=== PATIENT | male | born 2000 | race Caucasian/White ===

== ENCOUNTER 2023-12-14 10:10 | Emergency (ER) | payer OTHER ==
--- NOTE | 2023-12-14 10:52 | XRAY Report ---
PROCEDURE: Knee 4+V LT INDICATIONS: Trauma TECHNIQUE: 4 views of the knee(s) were acquired. COMPARISON: None. FINDINGS: Bones: No displaced fracture is identified. No dislocation. Soft tissues: Possible small suprapatellar effusion. IMPRESSION: No acute osseous abnormality on radiography. If there is high concern for further derangement, consid er MRI evaluation. Possible small effusion. Reviewed by: Gianni Gan MD on 12/14/2023 10:50 AM [facility] Approved by: Gianni Gan MD on 12/14/2023 10:50 AM PST Station ID: [id number]
[2023-12-14 11:09] VITALS: BP 142/85; O2SAT 98
--- NOTE | 2023-12-14 11:32 | ED Physician Documentation ---
PD HPI LOWER EXT INJURY - Stated complaint Stated Complaint: LT KNEE INJ,RT HAND LAC - Chief complaint Chief Complaint: Ext Problem - History obtained from History obtained from: Patient - Additional information Additional information: Patient is a 23-year-old male with no significant past medical history presenting for evaluation of left knee pain. 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 Reports having difficulty with ambulation due to feeling like his knee is going to buckle again and reports pain to the site. He has had on and off issues with this knee. Denies head injury. Does not take any medications regularly. Review of Systems Musculoskeletal: reports: Joint pain Neurologic: denies: Head injury PD PAST MEDICAL HISTORY - Past Medical History Past Medical History: No - Past Surgical History Past Surgical History: No - Present Medications Home Medications: Ambulatory Orders Medication Instructions Recorded Confirmed No Known Home Medications 12/14/23 12/14/23 - Allergies Allergies/Adverse Reactions: Allergies Allergy/AdvReac Type Severity Reaction Status Date / Time No Known Drug Allergies Allergy Verified 12/14/23 10:25 - Social History Does the pt smoke?: No Smoking Status: Never smoker PD ED PE NORMAL - General General: Alert and oriented X 3, No acute distress, Well developed/nourished - HEENT HEENT: Atraumatic, Moist mucous membranes - Respiratory Respiratory: No respiratory distress - Derm Derm: Warm and dry - Extremities Extremities: No deformity, No edema, Other (Pain on range of motion of left knee, no instability noted, distal pulses intact, tenderness over superior and inferior portions of the knee joint, no significant swelling, no erythema or warmth) Results - Vitals Vitals: Vital Signs - 24 hr 12/14/23 10:21 Temperature 36.7 C Heart Rate 87 Respiratory 18 Rate Blood Pressure 142/85 H O2 Saturation 98 PD Medical Decision Making - ED course ED course: Patient with pain and injury to his left knee. Patient is neurovascularly intact. X-ray was obtained which I reviewed I see no fracture or dislocation. No pain elsewhere. Reviewed other structures that could be injured that do not show well on x-rays. Recommend knee immobilizer and crutches as well as close follow-up with PCP at the [facility]. Patient counseled on concerning symptoms to return for. Departure - Departure Disposition: Home, Self Care Clinical Impression: Left knee injury Condition: Stable Instructions: ED Knee Pain [facility] Follow-Up: [facility] [Provider Group] Comments: Your knee x-ray does not show A broken bone or dislocation. There are other structures in the knee that could get injured but do not show up on x-ray. Therefore I am recommending we have you wear a knee immobilizer and use crutches as needed to keep off the affected leg. Continue with acetaminophen or ibuprofen, ice, elevation. If your symptoms or not getting better over the course of the next 5 to 7 days and I would recommend follow-up with [facility]. XRAY IMPRESSION: No acute osseous abnormality on radiography. If there is high concern for further derangement, consider MRI evaluation. Possible small effusion. Forms: PCP List, Activity restrictions Discharge Date/Time: 12/14/23 11:58
== END 2023-12-14 11:58 | disposition home or self-care (01) ==
LOC: ED 10:10
DX: S89.92XA Unspecified injury of left lower leg, initial encounter (principal); X58.XXXA Exposure to other specified factors, initial encounter; Y92.138 Other place on military base as the place of occurrence of the external cause; Y99.1 Military activity
CPT/HCPCS: 99283